=== PATIENT | female | born 1975 | race Caucasian/White ===

== ENCOUNTER 2019-08-10 15:14 | Emergency (ER) | payer MEDICAID ==
--- NOTE | 2019-08-10 15:24 | EDM.PDOC ---
ED HPI GENERAL MEDICAL PROBLEM - General Chief Complaint: Chest Pain Stated Complaint: CHEST PAINS Time Seen by Provider: 08/10/19 15:16 Source of Information: Reports: Patient History Limitations: Reports: No Limitations - History of Present Illness INITIAL COMMENTS - FREE TEXT/NARRATIVE: Liz is a 44 year old female, hx of anxiety, presents to the ED today with c /o midsternal chest pain that radiates down her right arm. Patient reports the pain started approximately 45 minutes prior to arrival with accompanied sob. Patient thinks her sob is largely related to her anxiety as she has had panic attacks with sob in the past. Patient does smoke. Patient just finished antibiotics and steroids about a week ago for acute bronchitis. Patient still coughing, non productive. Patient denies any fever. Patient took a Lortab this morning for a migraine otherwise has not taken any medications today. Patient denies any personal cardia hx however patient's mother and father both have extensive cardiac hx. Patient is a daily smoker. Patient denies anything that has really helped her pain or made it worse. Onset: Today, Sudden Duration: Minutes: (45) Chest Pain Score (Numeric/FACES): 5 Right Arm Pain Score (Numeric/FACES): 5 - Related Data Allergies Allergy/AdvReac Type Severity Reaction Status Date / Time codeine Allergy Other Verified 08/10/19 15:32 Penicillins Allergy Anaphylactic Verified 08/10/19 15:32 Shock Home Meds: Home Meds Albuterol [Ventolin 2 MG/5 ML] 1 puff IH Q4HR PRN 08/10/19 [History] FLUoxetine HCl [Prozac] 60 mg PO DAILY 08/10/19 [History] Gabapentin [Neurontin] 300 mg PO TID 08/10/19 [History] Hydrocodone/Acetaminophen [Lortab 10 mg-300 mg/15 ml Elxr] 1 tab PO Q4HR PRN [History] LORazepam [Ativan] 0.5 mg PO DAILY PRN 08/10/19 [History] Zolpidem [Ambien] 10 mg PO BEDTIME PRN 08/10/19 [History] lamoTRIgine [Lamictal] 150 mg PO BID 08/10/19 [History] ED ROS GENERAL - Review of Systems Review Of Systems: ROS reveals no pertinent complaints other than HPI. ED EXAM, GENERAL - Physical Exam Exam: See Below Exam Limited By: No Limitations General Appearance: Alert, WD/WN, Anxious, Moderate Distress Eye Exam: Bilateral Eye: EOMI, PERRL Ears: Normal External Exam Throat/Mouth: Normal Oropharynx Head: Atraumatic Neck: Normal Inspection, Supple, Non-Tender Respiratory/Chest: No Respiratory Distress, Lungs Clear, Normal Breath Sounds, No Accessory Muscle Use, Chest Non-Tender Cardiovascular: Normal Peripheral Pulses, Regular Rate, Rhythm, No Murmur Back Exam: Normal Inspection Extremities: Normal Inspection, Normal Range of Motion, No Pedal Edema Neurological: Alert, Oriented, CN II-XII Intact, Normal Cognition Psychiatric: Anxious Skin Exam: Warm, Dry, Intact Lymphatic: No Adenopathy EKG INTERPRETATION EKG Date: 08/10/19 Time: 15:21 Rhythm: NSR [place]: Normal P-Wave: Present QRS: Normal ST-T: Normal QT: Normal Comparison: Other: (Non specific Q waves) Course - Vital Signs Last Recorded V/S: Last Vital Signs Temp 37.1 C 08/10/19 15:44 Pulse 83 08/10/19 16:14 Resp 12 08/10/19 16:14 BP 99/72 08/10/19 16:14 Pulse Ox 88 L 08/10/19 16:14 Liz is a 44 year old female who presents to the ED today with c/o chest pain, sob. Please refer to HPI and focused exam. Patient on arrival is very anxious appearing, hemodynamically stable, afebrile. Patient is not hypoxic, exam is reassuring. Certainly patient could be having a panic attack, however, she does have cardiac risk factors as well as a strong family hx of cardiac disease. EKG is unremarkable. PIV established, patient given 324 mg of aspirin as well as NTG. Blood work obtained including D dimer and Troponin. Right arm pain resolved after NTG. Chest pain and sob resolved with IV Ativan and Toradol. CBC returns with leukocytosis, stable HGB. D dimer is negative. Troponin is negative. Electrolytes stable. Elevated CRP, may be viral etiology. CXR unremarkable. Patient given a dose of Dilaudid for chest pain and headache. Will plan for repeat troponin at 1730 and if this remains negative will discharge patient home with primary care follow up. 1800-Repeat troponin is negative. Patient with Heart Score of 2 supporting discharge with close follow up. Patient instructed to follow up with PCP in the next week for re-evaluation and to discuss stress test/cardiac echo. Patient can take Ibuprofen/Tylenol as needed for pain. Smoking cessation encouraged. Reasons to return to the ED discussed, patient is agreeable and discharged in stable condition. - Orders/Labs/Meds Orders: Active Orders 24 hr Category Date Time Status Cardiac Monitoring [RC] .As Directed Care 08/10/19 15:18 Active EKG Documentation Completion [RC] ASDIRECTED Care 08/10/19 15:16 Active Peripheral IV Care [RC] . DIRECTED Care 08/10/19 15:16 Active TROPONIN I [CHEM] Routine Lab 08/10/19 17:28 Received Sodium Chloride 0.9% [Normal Saline] 1,000 ml Med 08/10/19 15:30 Active IV ASDIRECTED Sodium Chloride 0.9% [Saline Flush] Med 08/10/19 15:16 Active 10 ml FLUSH ASDIRECTED PRN Peripheral IV Insertion Adult [OM.PC] Routine Oth 08/10/19 15:16 Ordered EKG 12 Lead [EK] Stat Ther 08/10/19 15:16 Ordered Medication Orders Sodium Chloride (Normal Saline) 1,000 mls @ 150 mls/hr IV ASDIRECTED RASHIDA Last Admin: 08/10/19 15:26 Dose: 150 mls/hr Sodium Chloride (Saline Flush) 10 ml FLUSH ASDIRECTED PRN PRN Reason: Keep Vein Open Last Admin: 08/10/19 15:30 Dose: 10 ml Labs: Laboratory Tests 08/10/19 08/10/19 08/10/19 Range/Units 15:25 15:25 15:25 WBC 13.9 H (4.5-11.0) K/uL RBC 4.64 (3.30-5.50) M/uL Hgb 15.4 H (12.0-15.0) g/dL Hct 46.7 (36.0-48.0) % MCV 101 H (80-98) fL MCH 33 H (27-31) pg MCHC 33 (32-36) % Plt Count 325 (150-400) K/uL Neut % (Auto) 55 (36-66) % Lymph % (Auto) 32 (24-44) % [place] % (Auto) 7 H (2-6) % Eos % (Auto) 6 H (2-4) % Baso % (Auto) 1 (0-1) % D-Dimer, Quantitative < 100 (0.0-400.0) ng/mL Sodium 140 (140-148) mmol/L Potassium 4.3 (3.6-5.2) mmol/L Chloride 103 (100-108) mmol/L Carbon Dioxide 28 (21-32) mmol/L Anion Gap 9.3 (5.0-14.0) mmol/L BUN 11 (7-18) mg/dL Creatinine 0.9 (0.6-1.0) mg/dL Est Cr Clr Drug Dosing 70.28 mL/min Estimated GFR (MDRD) > 60 (>60) Glucose 95 (74-106) mg/dL Calcium 9.3 (8.5-10.1) mg/dL Total Bilirubin 0.2 (0.2-1.0) mg/dL AST 26 (15-37) U/L ALT 32 (12-78) U/L Alkaline Phosphatase 87 (46-116) U/L Troponin I < 0.017 (0.000-0.056) ng/mL C-Reactive Protein 2.13 H (0.0-0.3) mg/dL Total Protein 8.3 H (6.4-8.2) g/dL Albumin 4.1 (3.4-5.0) g/dL Globulin 4.2 H (2.3-3.5) g/dL Albumin/Globulin Ratio 1.0 L (1.2-2.2) Meds: Medications Generic Name Dose Route Start Last Admin Trade Name Freq PRN Reason Stop Dose Admin Sodium Chloride 1,000 mls @ 150 mls/hr 08/10/19 15:30 08/10/19 15:26 Normal Saline IV 150 mls/hr ASDIRECTED RASHIDA Administration Sodium Chloride 10 ml 08/10/19 15:16 08/10/19 15:30 Saline Flush FLUSH 10 ml ASDIRECTED PRN Administration Keep Vein Open Discontinued Medications Generic Name Dose Route Start Last Admin Trade Name Freq PRN Reason Stop Dose Admin Aspirin 324 mg 08/10/19 15:17 08/10/19 15:27 Aspirin PO 08/10/19 15:18 324 mg ONETIME ONE Administration Hydromorphone HCl 0.5 mg 08/10/19 16:22 08/10/19 16:26 Dilaudid IVPUSH 08/10/19 16:23 0.5 mg ONETIME ONE Administration Ketorolac Tromethamine 30 mg 08/10/19 15:18 08/10/19 15:29 Toradol IVPUSH 08/10/19 15:19 30 mg ONETIME ONE Administration Lorazepam 0.5 mg 08/10/19 15:18 08/10/19 15:29 Ativan IVPUSH 08/10/19 15:19 0.5 mg ONETIME ONE Administration Nitroglycerin 0.4 mg 08/10/19 15:17 08/10/19 15:28 Nitrostat SL 08/10/19 15:18 0.4 mg ONETIME ONE Administration Departure - Departure Time of Disposition: 18:30 Disposition: Home, Self-Care 01 Condition: Good Clinical Impression: Atypical chest pain Instructions: Nonspecific Chest Pain Referrals: PCP,None [Primary Care Provider] - Forms: ED Department Discharge Additional Instructions: You can take Ibuprofen or Tylenol for your pain. I would recommend with your family hx of heart disease that you follow up with your primary care provider to discuss a stress test/cardiac echo (Ultrasound). Return to the ED with any worsening symptom or concerns. - My Orders Last 24 Hours: My Active Orders 08/10/19 15:16 EKG Documentation Completion [RC] ASDIRECTED Peripheral IV Care [RC] . DIRECTED Sodium Chloride 0.9% [Saline Flush] 10 ml FLUSH ASDIRECTED PRN Peripheral IV Insertion Adult [OM.PC] Routine EKG 12 Lead [EK] Stat 08/10/19 15:18 Cardiac Monitoring [RC] .As Directed 08/10/19 15:30 Sodium Chloride 0.9% [Normal Saline] 1,000 ml IV ASDIRECTED 08/10/19 17:28 TROPONIN I [CHEM] Routine - Assessment/Plan Last 24 Hours: My Active Orders 08/10/19 15:16 EKG Documentation Completion [RC] ASDIRECTED Peripheral IV Care [RC] . DIRECTED Sodium Chloride 0.9% [Saline Flush] 10 ml FLUSH ASDIRECTED PRN Peripheral IV Insertion Adult [OM.PC] Routine EKG 12 Lead [EK] Stat 08/10/19 15:18 Cardiac Monitoring [RC] .As Directed 08/10/19 15:30 Sodium Chloride 0.9% [Normal Saline] 1,000 ml IV ASDIRECTED 08/10/19 17:28 TROPONIN I [CHEM] Routine
[2019-08-10] MEDS: Sodium Chloride 0.9% 1,000 ML IV SCH (15:26)
[2019-08-10] MEDS: Aspirin 81 MG Tab.Chew PO ONE (15:27)
[2019-08-10] MEDS: Nitroglycerin 0.4 MG Tab.SL SL ONE (15:28)
[2019-08-10] MEDS: Ketorolac 30 MG/ML SDV IVPUSH ONE (15:29)
[2019-08-10] MEDS: LORazepam 2 MG/ML SDV IVPUSH ONE (15:29)
[2019-08-10] MEDS: Sodium Chloride 0.9% 10 ML Syringe FLUSH PRN (15:30)
--- NOTE | 2019-08-10 16:16 | CR ---
CHEST: Portable 08/10/2019 at 401 CLINICAL HISTORY:Chest pain COMPARISON:None FINDINGS: The heart size, pulmonary vascular and hilar structures are normal. No infiltrate effusion or pneumothorax is seen. IMPRESSION: No acute cardiopulmonary process.
[2019-08-10] MEDS: HYDROmorphone 0.5 MG/0.5 ML Syringe IVPUSH ONE (16:26)
== END 2019-08-10 18:15 | disposition home or self-care (01) ==
LOC: JP.ED 15:14
DX: R07.89 Other chest pain (principal)
CPT/HCPCS: 36415; 71045; 80053; 84484; 85025; 85379; 86140; 93005; 96361; 96374; 96375; 99285; A9270; J1170; J1885; J2060; J7030

== ENCOUNTER 2019-10-17 17:04 | Emergency (ER) | payer MEDICAID ==
[2019-10-17] MEDS ORDERED: HYDROmorphone 1 MG/ML Syringe IM ONE (18:09)
[2019-10-17] MEDS ORDERED: Promethazine 25 MG/ML SDV IM ONE (18:10)
--- NOTE | 2019-10-17 18:13 | EDM.PDOC ---
ED HPI GENERAL MEDICAL PROBLEM - General Chief Complaint: Headache Stated Complaint: MIGRAINE Time Seen by Provider: 10/17/19 18:10 Source of Information: Reports: Patient History Limitations: Reports: No Limitations - History of Present Illness INITIAL COMMENTS - FREE TEXT/NARRATIVE: 44-year-old female with chronic migraines since age 12, has a right-sided typical migraine that is not responding to Maxalt. She typically needs an ER visit for breakthrough migraines twice yearly. Nausea and occasional vomiting. No neurologic complaints or deficits. According to the patient her neurologist typically gives her Dilaudid and Phenergan IM for breakthrough pain not responding to her typical medications. Duration: Day(s): (2-1/2 days) Location: Reports: Head (Right-sided, periorbital and temporal) Associated Symptoms: Reports: Nausea/Vomiting, Other (Photophobia) - Related Data Allergies Allergy/AdvReac Type Severity Reaction Status Date / Time codeine Allergy Other Verified 10/17/19 17:45 Penicillins Allergy Anaphylactic Verified 10/17/19 17:45 Shock Home Meds: Home Meds Albuterol [Ventolin 2 MG/5 ML] 1 puff IH Q4HR PRN 08/10/19 [History] FLUoxetine HCl [Prozac] 60 mg PO DAILY 08/10/19 [History] Gabapentin [Neurontin] 300 mg PO TID 08/10/19 [History] Hydrocodone/Acetaminophen [Lortab 10 mg-300 mg/15 ml Elxr] 1 tab PO Q4HR PRN [History] LORazepam [Ativan] 0.5 mg PO DAILY PRN 08/10/19 [History] Zolpidem [Ambien] 10 mg PO BEDTIME PRN 08/10/19 [History] lamoTRIgine [Lamictal] 150 mg PO BID 08/10/19 [History] Rizatriptan [Maxalt [employer]] 1 tab PO Q6HR PRN 10/17/19 [History] Past Medical History HEENT History: Reports: Impaired Vision Respiratory History: Reports: Asthma, Bronchitis, Recurrent Gastrointestinal History: Reports: Chronic Constipation Genitourinary History: Reports: None 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: Neurological History: Reports: Migraines Psychiatric History: Reports: Addiction, Anxiety, Bipolar, Depression, Panic Attack - Infectious Disease History Infectious Disease History: Reports: Chicken Pox, Shingles - Past Surgical History Head Surgeries/Procedures: Reports: None HEENT Surgical History: Reports: Adenoidectomy, Tonsillectomy Respiratory Surgical History: Reports: None GI Surgical History: Reports: Appendectomy, Cholecystectomy Female Surgical History: Reports: Hysterectomy Neurological Surgical History: Reports: None Musculoskeletal Surgical History: Reports: Carpal Tunnel Dermatological Surgical History: Reports: None Social & Family History - Tobacco Use Smoking Status *Q: Current Every Day Smoker Years of Tobacco use: 33 Packs/Tins Daily: 0.7 - Caffeine Use Caffeine Use: Reports: Soda ED ROS GENERAL - Review of Systems Review Of Systems: See Below Constitutional: Denies: Fever, Chills Respiratory: Denies: Shortness of Breath Cardiovascular: Denies: Chest Pain GI/Abdominal: Reports: Nausea, Vomiting. Denies: Abdominal Pain Skin: Reports: No Symptoms Neurological: Reports: Headache. Denies: Trouble Speaking, Difficulty Walking, Weakness, Gait Disturbance - Physical Exam Exam: See Below Exam Limited By: No Limitations General Appearance: Alert, No Apparent Distress (Looks uncomfortable but not distressed) Eye Exam: Bilateral Eye: EOMI, PERRL Respiratory/Chest: No Respiratory Distress Neuro Exam (Abbreviated): Alert, Oriented, No Motor/Sensory Deficits Psychiatric: Flat Affect Skin Exam: Warm, Dry Course - Vital Signs Last Recorded V/S: Last Vital Signs Temp 97.3 F 10/17/19 17:53 Pulse 74 10/17/19 17:53 Resp 16 10/17/19 17:53 BP 128/78 10/17/19 17:53 Pulse Ox 90 L 10/17/19 17:53 - Orders/Labs/Meds Meds: Medications Discontinued Medications Generic Name Dose Route Start Last Admin Trade Name Freq PRN Reason Stop Dose Admin Hydromorphone HCl 1 mg 10/17/19 18:09 10/17/19 18:19 Dilaudid IM 10/17/19 18:10 1 mg ONETIME ONE Administration Promethazine HCl 25 mg 10/17/19 18:10 10/17/19 18:19 Phenergan IM 10/17/19 18:11 25 mg ONETIME ONE Administration - Re-Assessments/Exams Free Text/Narrative Re-Assessment/Exam: 10/17/19 18:13 1 mg of IM Dilaudid and 25 mg of IM Phenergan ordered. 10/17/19 18:36 20 minutes after medications patient was feeling well enough for discharge. She will continue her regular medications. Departure - Departure Time of Disposition: 18:45 Disposition: Home, Self-Care 01 Clinical Impression: Migraine headache Qualifiers: Migraine type: unspecified Status migrainosus presence: without status migrainosus Intractability: not intractable Qualified Code(s): G43.909 - Migraine, unspecified, not intractable, without status migrainosus - Discharge Information Instructions: Migraine Headache, [id number] Referrals: PCP,None [Primary Care Provider] - Forms: ED Department Discharge Care Plan Goals: Rest this evening, increase activity as tolerated and continue your regular medications. Return if worsening or concerns. Sepsis Event Note - Evaluation Sepsis Screening Result: No Definite Risk - Focused Exam Vital Signs: Vital Signs Temp Pulse Resp BP Pulse Ox 10/17/19 17:53 97.3 F 74 16 128/78 90 L 10/17/19 17:45 97.3 F 74 16 128/78 90 L Date Exam was Performed: 10/17/19 Time Exam was Performed: 20:37
== END 2019-10-17 18:46 | disposition home or self-care (01) ==
LOC: JP.ED 17:04
DX: G43.909 Migraine, unspecified, not intractable, without status migrainosus (principal); J45.909 Unspecified asthma, uncomplicated; F41.0 Panic disorder [episodic paroxysmal anxiety]; F32.9 Major depressive disorder, single episode, unspecified; F17.210 Nicotine dependence, cigarettes, uncomplicated; Z79.899 Other long term (current) drug therapy; Z88.5 Allergy status to narcotic agent; Z88.0 Allergy status to penicillin
CPT/HCPCS: 96372; 99283; J1170; J2550

== ENCOUNTER 2019-12-12 15:14 | Emergency (ER) | payer MEDICAID, MEDICARE ==
--- NOTE | 2019-12-12 15:37 | EDM.PDOC ---
ED HPI GENERAL MEDICAL PROBLEM - General Chief Complaint: Headache Stated Complaint: migraine Time Seen by Provider: 12/12/19 15:36 Source of Information: Reports: Patient - History of Present Illness INITIAL COMMENTS - FREE TEXT/NARRATIVE: 44 years old female patient presented with a chief complaint of migraine headache started 5 days ago. Constant right-sided sharp pain. 8 out of 10. She took her home migraine medicine Maxalt and hydrocodone and it didn't help. Associated with nausea but no vomiting. Sensitive to light and voice which is classic and typical for her migraine. Denies any fever. Denies any visual changes. Denies any neck pain or stiffness. Denies any back pain. Denies any chest pain shortness breath. Denies any abdominal pain diarrhea or constipation. Denies any urinary symptom. Not the worst headache in her life. Typical and classic and similar to her previous migraine headache. Headache Pain Score (Numeric/FACES): 9 - Related Data Allergies Allergy/AdvReac Type Severity Reaction Status Date / Time codeine Allergy Other Verified 12/12/19 15:37 Penicillins Allergy Anaphylactic Verified 12/12/19 15:37 Shock Home Meds: Home Meds Albuterol [Ventolin 2 MG/5 ML] 1 puff IH Q4HR PRN 08/10/19 [History] FLUoxetine HCl [Prozac] 60 mg PO BEDTIME 08/10/19 [History] Gabapentin [Neurontin] 300 mg PO TID 08/10/19 [History] Hydrocodone/Acetaminophen [Lortab 10 mg-300 mg/15 ml Elxr] 1 tab PO Q4HR PRN [History] LORazepam [Ativan] 0.5 mg PO DAILY PRN 08/10/19 [History] Zolpidem [Ambien] 10 mg PO BEDTIME PRN 08/10/19 [History] lamoTRIgine [Lamictal] 150 mg PO BID 08/10/19 [History] 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[employer]] 1 tab PO Q6HR PRN 10/17/19 [History] Past Medical History HEENT History: Reports: Impaired Vision Respiratory History: Reports: Asthma, Bronchitis, Recurrent Gastrointestinal History: Reports: Chronic Constipation Genitourinary History: Reports: None 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: Neurological History: Reports: Migraines Psychiatric History: Reports: Addiction, Anxiety, Bipolar, Depression, Panic Attack - Infectious Disease History Infectious Disease History: Reports: Chicken Pox, Shingles - Past Surgical History Head Surgeries/Procedures: Reports: None HEENT Surgical History: Reports: Adenoidectomy, Tonsillectomy Respiratory Surgical History: Reports: None GI Surgical History: Reports: Appendectomy, Cholecystectomy Female Surgical History: Reports: Hysterectomy Neurological Surgical History: Reports: None Musculoskeletal Surgical History: Reports: Carpal Tunnel Dermatological Surgical History: Reports: None Social & Family History - Caffeine Use Caffeine Use: Reports: Soda ED ROS GENERAL - Review of Systems Review Of Systems: Comprehensive ROS is negative, except as noted in HPI. - Physical Exam Exam: See Below Exam Limited By: No Limitations General Appearance: Alert, WD/WN, No Apparent Distress Ears: Normal External Exam, Normal Canal, Hearing Grossly Normal, Normal TMs Nose: Normal Inspection, Normal Mucosa, No Blood Throat/Mouth: Normal Inspection, Normal Lips, Normal Teeth, Normal Gums, Normal Oropharynx, Normal Voice, No Airway Compromise Head Exam: Atraumatic, Normocephalic Neck: Normal Inspection, Supple, Non-Tender, Full Range of Motion Respiratory/Chest: No Respiratory Distress, Lungs Clear, Normal Breath Sounds, No Accessory Muscle Use, Chest Non-Tender Cardiovascular: Normal Peripheral Pulses, Regular Rate, Rhythm, No Edema, No Gallop, No JVD, No Murmur, No Rub GI/Abdominal: Normal Bowel Sounds, Soft, Non-Tender, No Organomegaly, No Distention, No Abnormal Bruit, No Mass Neuro Exam (Abbreviated): Alert, Oriented, CN II-XII Intact, Normal Cognition, Normal Gait, Normal Reflexes, No Motor/Sensory Deficits Back Exam: Normal Inspection, Full Range of Motion, NT Extremities: Normal Inspection, Normal Range of Motion, Non-Tender, No Pedal Edema, Normal Capillary Refill Psychiatric: Normal Affect, Normal Mood Skin Exam: Warm, Dry, Intact, Normal Color, No Rash Course - Vital Signs Last Recorded V/S: Last Vital Signs Temp 36.3 C 12/12/19 15:34 Pulse 77 12/12/19 15:34 Resp 16 12/12/19 15:34 BP 137/84 12/12/19 15:34 Pulse Ox 94 L 12/12/19 15:34 - Orders/Labs/Meds Meds: Medications Discontinued Medications Generic Name Dose Route Start Last Admin Trade Name Freq PRN Reason Stop Dose Admin Hydromorphone HCl 1 mg 12/12/19 15:47 12/12/19 15:58 Dilaudid IM 12/12/19 15:48 1 mg ONETIME ONE Administration Promethazine HCl 12.5 mg 12/12/19 15:46 12/12/19 15:57 Phenergan IM 12.5 mg Q4H PRN Administration Nausea/Vomiting - Re-Assessments/Exams Free Text/Narrative Re-Assessment/Exam: 12/12/19 18:35 Patient was seen and examined shortly after arrival. Stable. Stated that usually she takes a shot of Phenergan and shot of Dilaudid and go home and always that take care of her migraine headache. Patient was given 1 mg IM Dilaudid and 12.5 mg IM Phenergan. Patient stated her symptom improved and requesting to be discharged home. Advised to rest and stay well-hydrated. Continue home meds. Close follow-up with PCP. Come back for any concern or any worsening symptom. Patient agrees with the plan. Stable for discharge. Departure - Departure Time of Disposition: 16:09 Disposition: Home, Self-Care 01 Condition: Good Clinical Impression: Migraine Migraine Qualifiers: Migraine type: unspecified Status migrainosus presence: without status migrainosus Intractability: not intractable Qualified Code(s): G43.909 - Migraine, unspecified, not intractable, without status migrainosus - Discharge Information Instructions: Recurrent Migraine Headache Referrals: PCP,None [Primary Care Provider] - Forms: ED Department Discharge Additional Instructions: Rest and stay well-hydrated Continue home meds Close follow-up with PCP Come back for any concern or any worsening symptom Sepsis Event Note - Focused Exam Vital Signs: Vital Signs Temp Pulse Resp BP Pulse Ox 12/12/19 15:34 36.3 C 77 16 137/84 94 L Date Exam was Performed: 12/12/19 Time Exam was Performed: 18:31 - Assessment/Plan Plan: Rest and stay well-hydrated Continue home meds Close follow-up with PCP Come back for any concern or any worsening symptom
[2019-12-12] MEDS ORDERED: Promethazine 25 MG/ML SDV IM PRN (15:46)
[2019-12-12] MEDS ORDERED: HYDROmorphone 1 MG/ML Syringe IM ONE (15:47)
== END 2019-12-12 16:19 | disposition home or self-care (01) ==
LOC: JP.ED 15:14
DX: G43.909 Migraine, unspecified, not intractable, without status migrainosus (principal); J45.909 Unspecified asthma, uncomplicated; F41.0 Panic disorder [episodic paroxysmal anxiety]; F32.9 Major depressive disorder, single episode, unspecified; Z88.5 Allergy status to narcotic agent; Z88.0 Allergy status to penicillin; Z79.899 Other long term (current) drug therapy
CPT/HCPCS: 96372; 99283; J1170; J2550

== ENCOUNTER 2021-02-27 09:06 | Emergency (ER) | payer SELFPAY ==
[2021-02-27] MEDS ORDERED: Ketorolac 30 MG/ML SDV IVPUSH ONE (09:27)
[2021-02-27] MEDS ORDERED: Prochlorperazine 10 MG/2 ML SDV IVPUSH ONE (09:28)
[2021-02-27] MEDS ORDERED: LORazepam 2 MG/ML SDV IVPUSH ONE (09:29)
[2021-02-27] MEDS ORDERED: Sodium Chloride 0.9% 1,000 ML IV SCH ×2 (09:30→11:15)
[2021-02-27] MEDS ORDERED: HYDROmorphone 0.5 MG/0.5 ML Syringe IVPUSH ONE (10:28)
[2021-02-27] MEDS ORDERED: HYDROmorphone 1 MG/ML Syringe IVPUSH ONE (11:24)
--- NOTE | 2021-02-27 11:51 | EDM.PDOC ---
ED HPI GENERAL MEDICAL PROBLEM - General Chief Complaint: Headache Stated Complaint: MIGRAINE Time Seen by Provider: 02/27/21 09:45 Source of Information: Reports: Patient History Limitations: Reports: No Limitations - History of Present Illness INITIAL COMMENTS - FREE TEXT/NARRATIVE: pt has had a migraine for 3-4 days. She has been vomiting. She normally gets relief with maxalt but did not this time. Onset: Gradual Duration: Day(s): Location: Reports: Head Associated Symptoms: Reports: Headaches, Malaise, Nausea/Vomiting, Weakness - Related Data Allergies Allergy/AdvReac Type Severity Reaction Status Date / Time codeine Allergy Other Verified 02/27/21 09:21 Penicillins Allergy Anaphylactic Verified 02/27/21 09:21 Shock Home Meds: Home Meds Albuterol [Ventolin 2 MG/5 ML] 1 puff IH Q4HR PRN 08/10/19 [History] FLUoxetine HCl [Prozac] 60 mg PO BEDTIME 08/10/19 [History] Gabapentin [Neurontin] 300 mg PO TID 08/10/19 [History] Hydrocodone/Acetaminophen [Lortab 10 mg-300 mg/15 ml Elxr] 1 tab PO Q4HR PRN 08/10/19 [History] LORazepam [Ativan] 0.5 mg PO DAILY PRN 08/10/19 [History] Zolpidem [Ambien] 10 mg PO BEDTIME PRN 08/10/19 [History] lamoTRIgine [Lamictal] 150 mg PO BID 08/10/19 [History] Rizatriptan [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 [employer]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] 1 tab PO Q6HR PRN 10/17/19 [History] Past Medical History HEENT History: Reports: Impaired Vision Respiratory History: Reports: Asthma, Bronchitis, Recurrent Gastrointestinal History: Reports: Chronic Constipation Genitourinary History: Reports: None [employer] History: Reports: Neurological History: Reports: Migraines Psychiatric History: Reports: Addiction, Anxiety, Bipolar, Depression, Panic Attack Endocrine/Metabolic History: Reports: Obesity/BMI 30+ - Infectious Disease History Infectious Disease History: Reports: Chicken Pox, Shingles - Past Surgical History Head Surgeries/Procedures: Reports: None HEENT Surgical History: Reports: Adenoidectomy, Tonsillectomy Respiratory Surgical History: Reports: None GI Surgical History: Reports: Appendectomy, Cholecystectomy Female Surgical History: Reports: Hysterectomy Neurological Surgical History: Reports: None Musculoskeletal Surgical History: Reports: Carpal Tunnel Dermatological Surgical History: Reports: None Social & Family History - Tobacco Use Tobacco Use Status *Q: Current Every Day Tobacco User Years of Tobacco use: 35 Packs/Tins Daily: 0.7 - Caffeine Use Caffeine Use: Reports: Soda - Recreational Drug Use Recreational Drug Use: Yes Drug Use in Last 12 Months: Yes Recreational Drug Type: Reports: Marijuana/Hashish ED ROS GENERAL - Review of Systems Review Of Systems: See Below Constitutional: Reports: No Symptoms HEENT: Reports: No Symptoms Respiratory: Reports: No Symptoms Cardiovascular: Reports: No Symptoms Endocrine: Reports: No Symptoms GI/Abdominal: Reports: No Symptoms, Nausea, Vomiting : Reports: No Symptoms Musculoskeletal: Reports: No Symptoms Skin: Reports: No Symptoms - Physical Exam Exam: See Below Text/Narrative:: pt arrived with a history of a 4 day headache. She does get alot of migraines bur she normally responds to Maxalt. She has been vomiting alot. Exam Limited By: No Limitations General Appearance: Alert, Anxious, Moderate Distress, Other (pupils are equal and reactive. ) Ears: Normal TMs Nose: Normal Inspection Throat/Mouth: Normal Inspection Head Exam: Atraumatic Neck: Other ( tightness in the posterior cervical area. ) Respiratory/Chest: No Respiratory Distress Cardiovascular: Regular Rate, Rhythm GI/Abdominal: Soft, Non-Tender (Female) Exam: Deferred Rectal (Female) Exam: Deferred Neuro Exam (Abbreviated): Normal Cognition Back Exam: Normal Inspection Extremities: Normal Inspection Psychiatric: Anxious Course - Vital Signs Last Recorded V/S: Last Vital Signs Temp 35.5 C L 02/27/21 09:23 Pulse 71 02/27/21 10:13 Resp 12 02/27/21 09:23 BP 117/67 02/27/21 11:13 Pulse Ox 92 L 02/27/21 10:13 - Orders/Labs/Meds Orders: Active Orders 24 hr Category Date Time Status Sodium Chloride 0.9% [Normal Saline] 1,000 ml Med 02/27/21 09:30 Active IV ASDIRECTED Sodium Chloride 0.9% [Normal Saline] 1,000 ml Med 02/27/21 11:15 Active IV ASDIRECTED Medication Orders Sodium Chloride (Normal Saline) 1,000 mls @ 999 mls/hr IV ASDIRECTED RASHIDA Last Admin: 02/27/21 10:05 Dose: 999 mls/hr Documented by: MARISOL Sodium Chloride (Normal Saline) 1,000 mls @ 999 mls/hr IV ASDIRECTED RASHIDA Meds: Medications Generic Name Dose Route Start Last Admin Trade Name Freq PRN Reason Stop Dose Admin Sodium Chloride 1,000 mls @ 999 mls/hr 02/27/21 09:30 02/27/21 10:05 Normal Saline IV 999 mls/hr ASDIRECTED RASHIDA Administration Sodium Chloride 1,000 mls @ 999 mls/hr 02/27/21 11:15 Normal Saline IV ASDIRECTED RASHIDA Discontinued Medications Generic Name Dose Route Start Last Admin Trade Name Freq PRN Reason Stop Dose Admin Hydromorphone HCl 0.5 mg 02/27/21 10:28 02/27/21 11:02 Hydromorphone 0.5 Mg/0.5 Ml Syringe IVPUSH 02/27/21 10:29 0.5 mg ONETIME ONE Administration Hydromorphone HCl 1 mg 02/27/21 11:24 02/27/21 11:50 Hydromorphone 1 Mg/Ml Syringe IVPUSH 02/27/21 11:25 Not Given ONETIME ONE Ketorolac Tromethamine 30 mg 02/27/21 09:27 02/27/21 09:53 Ketorolac 30 Mg/Ml Sdv IVPUSH 02/27/21 09:28 30 mg ONETIME ONE Administration Lorazepam 1 mg 02/27/21 09:29 02/27/21 09:59 Lorazepam 2 Mg/Ml Sdv IVPUSH 02/27/21 09:30 1 mg ONETIME ONE Administration Prochlorperazine Edisylate 10 mg 02/27/21 09:28 02/27/21 09:48 Prochlorperazine 10 Mg/2 Ml Sdv IVPUSH 02/27/21 09:29 10 mg ONETIME ONE Administration - Re-Assessments/Exams Free Text/Narrative Re-Assessment/Exam: 02/27/21 11:55 pt was given ativan 1 mg, torodol 30 mg, compazine 10 mg. She has some relief but still had a headache. She got dilaudid .5 and she is now much more comfortable and feels like she can rest. Departure - Departure Time of Disposition: 11:50 Disposition: Home, Self-Care 01 Condition: Fair Clinical Impression: Migraine headache, Dehydration - Discharge Information Referrals: JENNIFER ALLEN [Other] Forms: ED Department Discharge Care Plan Goals: push fluids, rest low activity today. rtc if problems. Sepsis Event Note (ED) - Evaluation Sepsis Screening Result: No Definite Risk - Focused Exam Vital Signs: Vital Signs Temp Pulse Resp BP Pulse Ox 02/27/21 11:13 117/67 02/27/21 10:13 71 109/66 92 L 02/27/21 10:04 70 100/62 92 L 02/27/21 09:23 35.5 C L 75 12 113/56 L 94 L 02/27/21 09:20 35.5 C L 75 12 113/56 L 94 L - My Orders Last 24 Hours: My Active Orders 02/27/21 09:30 Sodium Chloride 0.9% [Normal Saline] 1,000 ml IV ASDIRECTED 02/27/21 11:15 Sodium Chloride 0.9% [Normal Saline] 1,000 ml IV ASDIRECTED - Assessment/Plan Last 24 Hours: My Active Orders 02/27/21 09:30 Sodium Chloride 0.9% [Normal Saline] 1,000 ml IV ASDIRECTED 02/27/21 11:15 Sodium Chloride 0.9% [Normal Saline] 1,000 ml IV ASDIRECTED
== END 2021-02-27 12:00 | disposition home or self-care (01) ==
LOC: JP.ED 09:06
DX: G43.909 Migraine, unspecified, not intractable, without status migrainosus (principal); E86.0 Dehydration; J45.909 Unspecified asthma, uncomplicated; E66.9 Obesity, unspecified; Z72.0 Tobacco use; Z68.29 Body mass index [BMI] 29.0-29.9, adult; Z88.5 Allergy status to narcotic agent; Z88.0 Allergy status to penicillin; Z79.899 Other long term (current) drug therapy
CPT/HCPCS: 96374; 96375; 99283-25; 99284; J0780; J1170; J1885; J2060; J7030

== ENCOUNTER 2023-12-05 11:07 | Emergency (ER) | payer SELFPAY ==
[2023-12-05 12:04] LABS: APPEARANCE,URINE CLEAR (CLEAR); BILIRUBIN,URINE NEGATIVE (NEGATIVE); COLOR,URINE YELLOW (YELLOW); GLUCOSE,URINE NEGATIVE (NEGATIVE); KETONES,URINE NEGATIVE (NEGATIVE); LEUKOCYTE ESTERASE,URINE NEGATIVE (NEGATIVE); NITRITE,URINE NEGATIVE (NEGATIVE); OCCULT BLOOD,URINE TRACE-LYSED (NEGATIVE); PROTEIN,URINE NEGATIVE (NEGATIVE); UROBILINOGEN,URINE 0.2 EU/dL (0.2-1.0)
[2023-12-05 12:10] LABS: AMORPHOUS SEDIMENT,URINE NOT SEEN; BACTERIA,URINE RARE; EPITHELIAL CELLS,URINE NOT SEEN; MUCUS,URINE NOT SEEN; RBC,URINE 0-5 (0-5); WBC,URINE 0-5 (0-5)
[2023-12-05 12:48] LABS: BASOPHILS ABSOLUTE AUTO 0.09 K/uL (0.00-0.10); BASOPHILS PERCENT AUTO 0.9 % (0.1-1.3); EOSINOPHILS ABSOLUTE AUTO 0.31 K/uL (0.00-0.40); EOSINOPHILS PERCENT AUTO 3.2 % (0.0-5.4); HEMATOCRIT 39.2 % (34.3-46.0); HEMOGLOBIN 13.5 g/dL (11.2-15.5); IMMATURE GRAN PERCENT AUTO 0.2 % (0.0-0.7); LYMPHOCYTES ABSOLUTE AUTO 4.52 K/uL (0.8-3.3); MEAN CORPUSCULAR HEMOGLOBIN 32.4 pg (31.6-35.5); MEAN CORPUSCULAR HGB CONC 34.4 g/dL (31.6-35.5); MONOCYTES ABSOLUTE AUTO 0.41 K/uL (0.20-0.90); MONOCYTES PERCENT AUTO 4.3 % (3.3-12.6); NEUTROPHILS ABSOLUTE AUTO 4.26 K/uL (1.0-7.6); NEUTROPHILS PERCENT AUTO 44.4 % (40.0-78.1); PLATELET COUNT,PLT 281 K/uL (130-375); RED BLOOD CELL COUNT 4.17 M/uL (3.77-5.24); WHITE BLOOD CELL COUNT,WBC 9.6 K/uL (3.2-11.0)
[2023-12-05 12:49] LABS: IMMATURE GRAN ABSOLUTE AUTO 0.02 K/uL (0.00-0.23)
[2023-12-05] MEDS: Sodium Chloride 0.9% 10 ML Syringe FLUSH PRN ×2 (12:55→13:09)
[2023-12-05 13:09] LABS: A/G RATIO 0.9 (1.2-2.2); ALANINE AMINOTRANSFERASE,ALT 26 U/L (12-78); ALBUMIN 3.5 g/dL (3.4-5.0); ALKALINE PHOSPHATASE 88 U/L (46-116); ANION GAP 8.8 mmol/L (5.0-14.0); ASPARTATE AMNIOTRANSFERASE,AST 23 U/L (15-37); BILIRUBIN TOTAL 0.2 mg/dL (0.2-1.0); BLOOD UREA NITROGEN,BUN 11 mg/dL (7-18); CALCIUM 9.3 mg/dL (8.5-10.1); CARBON DIOXIDE,CO2 30 mmol/L (21-32); CHLORIDE,CL 102 mmol/L (100-108); CREATININE 0.9 mg/dL (0.6-1.0); EST CRCL DRUG DOSING (CG) 64.58 mL/min; ESTIMATED GFR 78 mL/min (>60); GLUCOSE RANDOM 95 mg/dL (74-106); POTASSIUM,K 3.9 mmol/L (3.6-5.2); PROTEIN TOTAL,TP 7.3 g/dL (6.4-8.2); SODIUM,NA 141 mmol/L (140-148)
[2023-12-05] MEDS: Iopamidol 612 MG/ML 100 ML Bottle IV PRN (13:09)
[2023-12-05] MEDS: Sodium Chloride 0.9% 80 ML IV SCH (13:09)
== END 2023-12-05 13:56 | disposition home or self-care (01) ==
LOC: JP.ED 11:07
DX: R10.11 Right upper quadrant pain (principal); G89.29 Other chronic pain; F17.210 Nicotine dependence, cigarettes, uncomplicated; Z90.49 Acquired absence of other specified parts of digestive tract; Z90.710 Acquired absence of both cervix and uterus; Z79.899 Other long term (current) drug therapy; Z88.5 Allergy status to narcotic agent; Z88.0 Allergy status to penicillin
CPT/HCPCS: 36415; 74177; 80053; 81001; 85025; 99284; J3490; Q9967